=== PATIENT | male | born 1960 | race Caucasian/White ===

== ENCOUNTER 2024-01-03 08:24 | Outpatient (CLI) | payer BC, SELFPAY ==
--- NOTE | ~2024-01-03 | MR_ITS ---
MRI of the right knee Clinical history: Chronic pain Technique: Coronal proton density and proton density-weighted images, sagittal proton-density and T2 fat-sat images, and axial proton-density fat-saturated images were acquired. Findings: Anterior and posterior cruciate ligaments are intact. Medial collateral ligament and the la teral collateral ligament complex are intact. Popliteus tendon is intact. There is oblique tear of the posterior horn of the medial meniscus. No lateral meniscal tear evident. There is mild chondral thinning of the medial femoral condyle. There is patchy moderate chondral jamie jean patella. There is moderate chondral malacia the central aspect of the femoral trochlea. Extensor mechanism is intact. No joint effusion or Mcadams's cyst. Impression: Oblique tear of the posterior horn medial meniscus. 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 Mild chondral thinning i n the medial femoral condyle. Reviewed, dictated and finalized at [facility]. Impression: Oblique tear of the posterior horn medial meniscus. 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 Mi ld chondral thinning in the medial femoral condyle.
== END 2024-01-03 08:25 | disposition home or self-care (01) ==
PROVIDERS: Visit Provider Orthopaedic Surgery
DX: S83.241A Other tear of medial meniscus, current injury, right knee, initial encounter (principal); M22.41 Chondromalacia patellae, right knee; G89.29 Other chronic pain; X58.XXXA Exposure to other specified factors, initial encounter
CPT/HCPCS: 73721